=== PATIENT | female | born 1965 ===

== ENCOUNTER 2020-07-05 10:35 | Outpatient (CLI) | payer MEDICAID ==
[~2020-07-05] VITALS: Ht 157.5 cm; Wt 60.3 kg
[2020-07-05 11:09] VITALS: BP 120/79
--- NOTE | 2020-07-05 12:14 | Consultation ---
DATE OF CONSULTATION: 07/05/2020 CHIEF COMPLAINT: GERD. HISTORY OF PRESENT ILLNESS: This is a 55-year-old female complained of the GERD symptoms, bloating, gas. The patient had endoscopy in 2018, which showed evidence of distal esophageal ring, esophagitis grade 2, hiatal hernia. PAST MEDICAL HISTORY: 1. History of migraine headaches. 2. Lupus. 3. Hypertension. 4. GERD. 5. Hiatal hernia. 6. History of H. pylori infection status post treatment and followup breath test. 7. Depression. 8. IBS. PAST SURGICAL HISTORY: None. MEDICATIONS: Please see medication reconciliation list. ALLERGIES: No known drug allergies. FAMILY HISTORY: Noncontributory. SOCIAL HISTORY: The patient denies any tobacco, alcohol, or drugs abuse. REVIEW OF SYSTEMS: Positive for GERD, mild constipation, bloating, abdominal distention. PHYSICAL EXAMINATION: VITAL SIGNS: Temperature 97, blood pressure 120/79, pulse is 67, respirations 20. HEENT: Normocephalic and atraumatic. Sclerae anicteric. NECK: Supple. No evidence of obvious lymphadenopathy. CARDIOVASCULAR: Regular rate and rhythm. Plus S1, S2. LUNGS: Clear to auscultation bilaterally. ABDOMEN: Positive bowel sounds. Soft and nontender. No rebound. No guarding. No peritoneal sign. EXTREMITIES: No cyanosis, no clubbing, no edema. ASSESSMENT AND PLAN: The patient is a 55-year-old female with chronic GERD, history of esophagitis, history of gastritis, H. pylori positive status post treatment. Plan, resume the PPI, omeprazole 40 mg p.o. daily. The patient will benefit from repeat endoscopy in September, which would be two years from the last month for followup given she had esophagitis. In terms of abdominal bloating and having bad breath smell, the patient most probably has SIBO. The patient who has lupus more prone to have SIBO and her symptoms are consistent so we will plan to start treatment with Xifaxan 550 mg p.o. t.i.d. for two weeks and the patient is to take Align one tablet p.o. for two months after that. The patient to come back in September for followup. Sterling Lulú Ballard DR: Roscoe JOB#: [id number] CC:
[2020-07-05] MEDS ORDERED: CALCIUM500 M3 PO (13:51)
[2020-07-05] MEDS ORDERED: METHOTREXATE2.5 MG PO (13:51)
[2020-07-05] MEDS ORDERED: GABAPENTIN600 MG ORAL (13:51)
[2020-07-05] MEDS ORDERED: PROSCAR5 MG ORAL (13:51)
[2020-07-05] MEDS ORDERED: FOSAMAX70 MG ORAL (13:51)
[2020-07-05] MEDS ORDERED: BACLOFEN10 MG ORAL (13:51)
[2020-07-05] MEDS ORDERED: TOPIRAMATE50 MG ORAL (13:51)
[2020-07-05] MEDS ORDERED: LISINOPRIL2.5 MG ORAL (13:51)
[2020-07-05] MEDS ORDERED: SPIRONOLACTONE50 MG ORAL (13:51)
[2020-07-05] MEDS ORDERED: HYDROXYCHLOROQ200 M1 PO (13:51)
[2020-07-05] MEDS ORDERED: BUSPIRONE HCL15 MG ORAL (13:51)
[2020-07-05] MEDS ORDERED: PREDNISONE2.5 MG ORAL (13:51)
[2020-07-05] MEDS ORDERED: FOLIC ACID1 MG ORAL (13:51)
== END 2020-07-05 12:38 | disposition home or self-care (01) ==
LOC: PAN 10:35
DX: K21.9 Gastro-esophageal reflux disease without esophagitis (principal); R14.0 Abdominal distension (gaseous); I10 Essential (primary) hypertension; F32.9 Major depressive disorder, single episode, unspecified; K59.00 Constipation, unspecified
CPT/HCPCS: 99203